=== PATIENT | female | born 1985 | race Caucasian/White ===

== ENCOUNTER 2017-03-09 17:23 | Emergency (ER) | payer MEDICAID ==
[~2017-03-09] VITALS: Wt 74.8 kg
[~2017-03-09 17:23] MED LIST: PREN-39 PO; PREN1TAB62 PO
[2017-03-09] MEDS ORDERED: KETOROLAC 60 MG INJ IM STA (19:03)
[2017-03-09] MEDS ORDERED: AMOX1TAB10 PO (20:17)
[2017-03-09] MEDS ORDERED: ACET500C5 PO (20:17)
--- NOTE | 2017-03-09 22:50 | ERD ---
ER Documentation Chief Complaint Chief Complaint MATAMOROS, facial tingling x3 days. neg neuro def in triage HPI 31-year-old female patient with no significant past medical history presents to the ED complaining of a headache, ear pain, facial pain, sore throat that started 3 days ago. Patient describes the headache and sinus pain as pressure- like. Denies any fever, chills, nausea, vomiting, diarrhea, abdominal pain, chest pain, wheezing, shortness of breath, difficulty breathing. Denies any head trauma or injuries. Denies any loss of consciousness or seizures. ROS All systems reviewed and are negative except as per history of present illness. Medications Home Meds Active Scripts Acetaminophen* (Tylophen*) 500 Mg Capsule, 1 CAP PO Q6H Y for PAIN AND OR ELEVATED TEMP, #20 CAP Prov:MARK WHITLOCK PA-C 03/09/17 Amoxicillin/Potassium Clav (Amox-Clav 875-125 mg Tablet) 875-125 mg Tab, 1 TAB PO BID for 7 Days, #14 TAB Prov:MARK WHITLOCK PA-C 03/09/17 Reported Medications Vit-Iron Fumarate-FA ( Vitamin Tablet) 1 Each Tablet, 1 TAB PO DAILY, TAB 12/08/15 Vits W-Ca,Fe,Fa(<1MG) ( Vitamins) 1 Tab Tablet, 1 TAB PO DAILY , TAB 07/17/15 Allergies Allergies: Coded Allergies: ranitidine (Verified Allergy, Unknown, sob, 03/09/17) PMhx/Soc History of Surgery: Yes (cholecystectomy) Hx Neurological Disorder: No Hx Respiratory Disorders: No Hx Cardiac Disorders: No Hx Miscellaneous Medical Probl: No Hx Alcohol Use: No Hx Substance Use: No Hx Tobacco Use: No Smoking Status: Never smoker Physical Exam Vitals Vital Signs Date Time Temp Pulse Resp B/P Pulse Ox O2 Delivery O2 Flow Rate FiO2 03/09/17 17:25 98.0 81 20 142/80 99 Physical Exam Const: [id number]-[id number], well-nourished. In no acute distress. Head: Atraumatic, normocephalic. Tenderness to palpation of the maxillary and facial sinuses. Eyes: Normal Conjunctiva without injection. No purulent discharge. PERRLA. EOMI ENT: Normal external ear. Ear canal without erythema. Tympanic membrane pearly glasgow without effusion or bulging. Nasal canal clear with normal turbinates. Moist oropharynx without tonsillar exudates. Non-erythematous pharynx. Uvula midline. No drooling. No trismus. Neck: No cervical midline tenderness. Full range of motion. No meningismus. No cervical lymphadenopathy. No JVD. Resp: Clear to auscultation bilaterally. No wheezing, rhonchi, rales, or crackles. No accessory muscle use. No retractions. Cardio: Regular rate and rhythm. No murmurs, rubs or gallops. Abd: Soft, non tender, non distended. Normal bowel sounds. No palpable masses. No rebound tenderness. No guarding. Negative McBurney's Point. Negative Gonzalez's Sign. Skin: Normal skin turgor. No petechiae or rashes Back: No midline tenderness. No CVA tenderness. Ext: No cyanosis, or edema. Distal pulses intact bilaterally. Neur: Awake and alert. Normal gait. Normal coordination. Cranial Nerves II- VII intact. Normal finger to nose. Muscle strength 5/5. Sensation intact. Psych: Normal Mood and Affect Results 24 hrs Current Medications Medications (Trade) Dose Ordered Sig/Kellee Route PRN Reason Start Time Stop Time Status Last Admin Dose Admin Ketorolac Tromethamine (Toradol) 60 mg ONCE STAT IM 03/09/17 19:03 03/09/17 19:04 DC 03/09/17 19:15 Procedures/MDM 31-year-old female patient with no significant past medical history presents to the ED complaining of facial pain, headache that started 3 days ago. Patient is afebrile and nontoxic-appearing. Patient has normal vital signs. negative. Patient was treated here in the ED with Toradol with improvement of her symptoms and headache. Patient could likely have sinusitis and sinus headache. She will be treated with outpatient antibiotics. Patient is appropriate for outpatient antibiotics. Patient's physical exam include lungs which were clear to auscultation and a normal pulse oximetry. Bilateral ears pearly santos. No tenderness to palpation of tragus or mastoid. Low suspicion for mastoiditis, otitis externa, otitis media. Patient is speaking in full sentences. There is a low suspicion for pneumonia, epiglottitis, croup, sinusitis, peritonsillar abscess, hands foot mouth disease, scarlet fever, Kawasaki disease, Augustine's angina, retropharyngeal abscess, meningitis, sepsis, acute abdomen or other emergent conditions. Discharge medications: Tylenol, Augmentin Follow up with primary care physician in 1-2 days. Instructed patient to return to the ED sooner for any worsening symptoms. Patient's questions were answered. Patient understood and agreed with discharge plan. Patient discharged stable. Departure Diagnosis: Primary Impression: Headache Headache type: unspecified Headache chronicity pattern: unspecified pattern Intractability: not intractable Qualified Code: R51 - Nonintractable headache, unspecified chronicity pattern, unspecified headache type Additional Impression: Sinus pain Condition: Stable Patient Instructions: Headache, Unspecified, Sinusitis, Abx Tx Referrals: [facility] YOU HAVE RECEIVED A MEDICAL SCREENING EXAM AND THE RESULTS INDICATE THAT YOU DO NOT HAVE A CONDITION THAT REQUIRES URGENT TREATMENT IN THE EMERGENCY DEPARTMENT. FURTHER EVALUATION AND TREATMENT OF YOUR CONDITION CAN WAIT UNTIL YOU ARE SEEN IN YOUR DOCTORS OFFICE WITHIN THE NEXT 1-2 DAYS. IT IS YOUR RESPONSIBILITY TO MAKE AN APPOINTMENT FOR FOLOW-UP CARE. IF YOU HAVE A PRIMARY DOCTOR --you should call your primary doctor and schedule an appointment IF YOU DO NOT HAVE A PRIMARY DOCTOR YOU CAN CALL OUR PHYSICIAN REFERRAL HOTLINE AT IF YOU CAN NOT AFFORD TO SEE A PHYSICIAN YOU CAN CHOSE FROM THE FOLLOWING [facility] [address] [facility]. [facility] [address] [facility] [facility] [address] [facility] [facility] [address] [facility] [facility] [address] [facility]. [facility]. [address] [facility]. [facility] YOU HAVE RECEIVED A MEDICAL SCREENING EXAM AND THE RESULTS INDICATE THAT YOU DO NOT HAVE A CONDITION THAT REQUIRES URGENT TREATMENT IN THE EMERGENCY DEPARTMENT. FURTHER EVALUATION AND TREATMENT OF YOUR CONDITION CAN WAIT UNTIL YOU ARE SEEN IN YOUR DOCTORS OFFICE WITHIN THE NEXT 1-2 DAYS. IT IS YOUR RESPONSIBILITY TO MAKE AN APPOINTMENT FOR FOLOW-UP CARE. IF YOU HAVE A PRIMARY DOCTOR --you should call your primary doctor and schedule and appointment IF YOU DO NOT HAVE A PRIMARY DOCTOR YOU CAN CALL OUR PHYSICIAN REFERRAL HOTLINE AT . IF YOU CAN NOT AFFORD TO SEE A PHYSICIAN YOU CAN CHOSE FROM THE FOLLOWING [facility] INSTITUTIONS: [facility] [address] [place] [address] [facility] [address] [place] [address] [facility] [address] [place] [address] [facility] Additional Instructions: Call your primary care doctor TOMORROW for an appointment during the next 2-3 days.See the doctor sooner or return here if your condition worsens before your appointment time. MARK WHITLOCK PA-C Mar 09, 2017 22:50
== END 2017-03-09 20:30 | disposition home or self-care (01) ==
LOC: FTE 17:23
DX: R51 Headache (principal); J34.89 Other specified disorders of nose and nasal sinuses
CPT/HCPCS: 96372; J1885; Z7502

== ENCOUNTER 2017-08-21 13:16 | Emergency (ER) | END 2017-08-21 15:13 | disposition home or self-care (01) ==

== ENCOUNTER 2017-12-25 17:14 | Emergency (ER) | END 2017-12-25 19:24 | disposition home or self-care (01) ==